=== PATIENT | female | born 1975 | race Two or more races ===

== ENCOUNTER 2019-05-25 05:45 | Inpatient (IN) | payer BC, MEDICAID ==
[2019-05-25] VITALS (12 sets, daily range): BP systolic 94–107; BP diastolic 53–60
[~2019-05-25] VITALS: Ht 160 cm; Wt 59.1 kg
[~2019-05-25 05:45] MED LIST: NAPR-996 PO
[2019-05-25] MEDS ORDERED: normal saline 1000ML IV soln IVB ONE (06:20)
[2019-05-25] MEDS ORDERED: morphine 4 MG/ML inj SYRINge IV PRN (06:20)
[2019-05-25] MEDS ORDERED: ondansetron/PF 4mg/2ml inj IV ONE (06:20)
[2019-05-25] MEDS ORDERED: mag hydrox/Alum hydrox/simeth 30ml oral suspension PO ONE (06:40)
[2019-05-25] MEDS ORDERED: famotidine 20mg tablet PO ONE (06:40)
[2019-05-25] MEDS ORDERED: LIDOcaine Viscous 15ml cup PO ONE (06:40)
[2019-05-25 06:52] LABS: BASOPHILS % (AUTO) 0.2 % (0-1); EOSINOPHILS % (AUTO) 0.3 % (0-6); HEMATOCRIT 36.3 % (35.0-45.0); HEMOGLOBIN 12.5 g/dl (12.0-16.0); LYMPHOCYTES # (AUTO) 0.9 X10'3 (1.1-4.8); LYMPHOCYTES % (AUTO) 11.1 % (21-51); MEAN CORPUSCULAR HEMOGLOBIN 30.2 PG (27.0-31.0); MEAN CORPUSCULAR HGB CONC 34.4 g/dL (33.0-36.5); MEAN CORPUSCULAR VOLUME 87.9 FL (78-98); MEAN PLATELET VOLUME 8.9 FL (7.4-10.4); MONOCYTES # (AUTO) 0.5 X10'3 (0-0.9); MONOCYTES % (AUTO) 6.4 % (2-12); NEUTROPHILS # (AUTO) 6.8 X10'3 (1.8-7.7); PLATELET COUNT 244 X10'3 (140-440); RED BLOOD COUNT 4.13 X10'6 (4.20-5.60); RED CELL DISTRIBUTION WIDTH 12.9 % (11.5-14.5); WHITE BLOOD COUNT 8.3 X10'3 (4.5-11.0)
[2019-05-25 07:04] LABS: ALANINE AMINOTRANSFERASE 344 U/L (12-78); ALBUMIN 4.1 G/DL (3.4-5.0); ALBUMIN/GLOBULIN RATIO 1.1 (1.1-1.5); ALKALINE PHOSPHATASE 155 IU/L (46-116); ANION GAP 11 (8-16); ASPARTATE AMINO TRANSFERASE 518 U/L (10-37); BILIRUBIN,TOTAL 1.2 MG/DL (0.1-1.0); BLOOD UREA NITROGEN 18 MG/DL (7-18); BUN/CREATININE RATIO 30.5 (6.6-38.0); CALCIUM 9.7 MG/DL (8.5-10.1); CHLORIDE 104 MMOL/L (99-107); CREATININE 0.59 MG/DL (0.40-0.90); GLUCOSE 130 MG/DL (70-104); POTASSIUM 3.8 MMOL/L (3.5-5.1); SODIUM 139 MMOL/L (135-145); TOTAL CARBON DIOXIDE 24.5 MMOL/L (24-32); eGFR > 90 ML/MIN
[2019-05-25 07:29] LABS: LIPASE > 30000 U/L (73-393)
[2019-05-25 09:12] LABS: URINE HCG NEGATIVE (NEG)
[2019-05-25 09:13] LABS: CLARITY,URINE SLIGHTLY CLOUDY (Clear); COLOR,URINE YELLOW (Yellow); GLUCOSE, URINE NEGATIVE (Neg); KETONES,URINE NEGATIVE (Neg); LEUKOCYTE ESTERASE ,URINE NEGATIVE (Neg); NITRITES, URINE NEGATIVE (Neg); OCCULT BLOOD,URINE NEGATIVE (Neg); PH,URINE 6.5 (4.8-8.0); PROTEIN,URINE NEGATIVE (Neg)
[2019-05-25 09:14] LABS: UA COLLECTION TYPE CLN CATCH MIDSTREAM
[2019-05-25 09:23] LABS: CAL OXALATE CRYSTALS 2+ /HPF (NEGATIVE); MUCUS STRANDS MODERATE /LPF (Neg); SQUAMOUS EPITHELIAL CELL,UR MODERATE /LPF (FEW)
[2019-05-25 09:25] LABS: BACTERIA,URINE 4+ /HPF (Neg); RBC,URINE 0-2 /HPF (0-2); WBC,URINE 0-4 /HPF (0-4)
[2019-05-25] MEDS ORDERED: normal saline 1000ml 1,000 ML IV ONE (09:35)
[2019-05-25] MEDS ORDERED: morphine 4 MG/ML inj SYRINge IV ONE (09:35)
--- NOTE | 2019-05-25 09:59 | NUR ---
NELY FROM GI LAB REPORTS PT TO GOING TO GI LAB SOMETIME TODAY NO ESTIMATED. PT TO REMAIN NPO.
[2019-05-25] MEDS ORDERED: potassium CL 10mEq/100ml bag 100 ML IV PRN ×2 (10:20)
[2019-05-25] MEDS ORDERED: morphine 2 MG/ML inj. syringe IV PRN (10:20)
[2019-05-25] MEDS ORDERED: potassium Cl 20 mEq SR tablet PO PRN ×2 (10:20)
[2019-05-25] MEDS ORDERED: magnesium 2GM in 50ml NS 50 ML IV PRN (10:20)
[2019-05-25] MEDS ORDERED: ondansetron/PF 4mg/2ml inj IV PRN (10:20)
[2019-05-25] MEDS ORDERED: magnesium 4gm in 100ml NS 100 ML IV PRN (10:20)
[2019-05-25] MEDS ORDERED: magnesium Cl slow-release 64mg tablet PO PRN (10:20)
[2019-05-25] MEDS ORDERED: MULT-933 PO (12:02)
[2019-05-25] MEDS ORDERED: PANT40TA4 PO (12:02)
[2019-05-25] MEDS: normal saline 1000ml 1,000 ML IV SCH ×2 (13:06→20:16)
[2019-05-25] MEDS ORDERED: fentaNYL/PF 50MCG/1 ML 2ML syringe ONE (13:26)
[2019-05-25] MEDS ORDERED: iohexol 300 MG/1 ML 50ml polymer ONE (13:27)
[2019-05-25] MEDS ORDERED: LIDOcaine Viscous 15ml cup ONE (13:27)
[2019-05-25] MEDS ORDERED: MIDAZolam 5mg/5ml vial ONE (13:27)
[2019-05-25] MEDS ORDERED: glucagon, human recombinant 1mg kit ONE (13:27)
[2019-05-25] MEDS ORDERED: diphenhydrAMINE 50 mg/ml inj ONE (13:27)
[2019-05-25] MEDS ORDERED: levoFLOXACIN-Levaquin 500mg/D5 100 ML IV ONE (13:27)
[2019-05-25] MEDS: morphine 2 MG/ML inj. syringe IV PRN (17:10)
[2019-05-25] MEDS: pantoprazole 40mg Tablet.DR PO SCH (17:32)
[2019-05-26] VITALS (16 sets, daily range): BP systolic 93–126; BP diastolic 51–74
[2019-05-26] MEDS: normal saline 1000ml 1,000 ML IV SCH ×3 (02:55→22:12)
[2019-05-26 05:18] LABS: BASOPHILS % (AUTO) 0.3 % (0-1); EOSINOPHILS % (AUTO) 0.7 % (0-6); HEMATOCRIT 30.2 % (35.0-45.0); HEMOGLOBIN 10.2 g/dl (12.0-16.0); LYMPHOCYTES # (AUTO) 1.8 X10'3 (1.1-4.8); LYMPHOCYTES % (AUTO) 31.5 % (21-51); MEAN CORPUSCULAR HEMOGLOBIN 29.9 PG (27.0-31.0); MEAN CORPUSCULAR HGB CONC 33.6 g/dL (33.0-36.5); MEAN CORPUSCULAR VOLUME 88.8 FL (78-98); MONOCYTES # (AUTO) 0.4 X10'3 (0-0.9); MONOCYTES % (AUTO) 6.2 % (2-12); NEUTROPHILS # (AUTO) 3.5 X10'3 (1.8-7.7); NEUTROPHILS % (AUTO) 61.3 % (42-75); PLATELET COUNT 187 X10'3 (140-440); RED CELL DISTRIBUTION WIDTH 13.2 % (11.5-14.5); WHITE BLOOD COUNT 5.8 X10'3 (4.5-11.0)
[2019-05-26 05:42] LABS: ALANINE AMINOTRANSFERASE 175 U/L (12-78); ALBUMIN 2.9 G/DL (3.4-5.0); ALKALINE PHOSPHATASE 118 IU/L (46-116); ANION GAP 9 (8-16); ASPARTATE AMINO TRANSFERASE 120 U/L (10-37); BILIRUBIN,TOTAL 0.5 MG/DL (0.1-1.0); BLOOD UREA NITROGEN 6 MG/DL (7-18); BUN/CREATININE RATIO 13.3 (6.6-38.0); CALCIUM 7.9 MG/DL (8.5-10.1); CHLORIDE 109 MMOL/L (99-107); CREATININE 0.45 MG/DL (0.40-0.90); GLUCOSE 77 MG/DL (70-104); MAGNESIUM 1.9 MG/DL (1.5-2.4); POTASSIUM 3.6 MMOL/L (3.5-5.1); SODIUM 141 MMOL/L (135-145); TOTAL CARBON DIOXIDE 23.4 MMOL/L (24-32); TOTAL PROTEIN 5.9 G/DL (6.4-8.2); eGFR > 90 ML/MIN
[2019-05-26 06:12] LABS: LIPASE 2883 U/L (73-393)
--- NOTE | 2019-05-26 06:42 | NUR ---
Patient in room [facility]. I have received report from AUDREY Palacios and had the opportunity to ask questions and assume patient care.
--- NOTE | 2019-05-26 06:57 | NUR ---
Patient in room [facility] 348. I have received report from Naida VENTURA, and had the opportunity to ask questions and assume patient care.
[2019-05-26] MEDS: K and/or MAG REPLACEMENT MC SCH (08:00)
[2019-05-26] MEDS: multivitamins, therapeutics tablet PO SCH (08:44)
[2019-05-26] MEDS: pantoprazole 40mg Tablet.DR PO SCH (08:44)
--- NOTE | 2019-05-26 11:26 | NUR ---
Patient removed one yellow ring, two earrings with clear clear stones, one red rope bracelet and gave to their daughter to take home.
--- NOTE | 2019-05-26 15:09 | NUR ---
Student Medication Administration: For this medication-pass time frame, all medication were reviewed, dispensed, administered and documented per hospital policy by SN [facility].
--- NOTE | 2019-05-26 15:47 | NUR ---
Pt transported to OR at 1545. Blood glucose finger stick 63. Dr Zarate notified.
[2019-05-26] MEDS ORDERED: ringers solution, lacted 1,000 ML IV SCH (16:14)
[2019-05-26] MEDS ORDERED: morphine 4 MG/ML inj SYRINge IV PRN ×2 (16:15)
[2019-05-26] MEDS ORDERED: labetalol 20mg/4ml (5mg/ml) syringe IV PRN (16:15)
[2019-05-26] MEDS ORDERED: hydrALAZINE 20mg/ml inj. IV PRN (16:15)
[2019-05-26] MEDS ORDERED: ondansetron/PF 4mg/2ml inj IV PRN (16:15)
[2019-05-26] MEDS ORDERED: fentaNYL/PF 50MCG/1 ML 2ML syringe IV PRN (16:15)
[2019-05-26] MEDS ORDERED: dexamethasone sod phosphate 10mg/ml inj ONE (16:19)
[2019-05-26] MEDS ORDERED: glycopyrrolate 0.2mg/ml inj ONE (16:19)
[2019-05-26] MEDS ORDERED: sevoflurane 250ml liquid IH ONE (16:19)
[2019-05-26] MEDS ORDERED: neostigmine methylsulfate 1 MG/ML 10ml vial ONE (16:19)
[2019-05-26] MEDS ORDERED: BUPIVAcaine/PF 2.5 mg/ml (0.25%) 30ml vial ONE (16:20)
[2019-05-26] MEDS ORDERED: rocuronium 10mg/ml inj IV ONE (16:27)
[2019-05-26] MEDS ORDERED: ceFAZolin 1000mg inj ONE ×2 (16:29)
[2019-05-26] MEDS ORDERED: ondansetron/PF 4mg/2ml inj ONE (16:29)
[2019-05-26] MEDS ORDERED: LIDOcaine 2% (20mg/ml) 5ml vial ONE (16:33)
[2019-05-26] MEDS ORDERED: fentaNYL/PF 50MCG/1 ML 2ML syringe ONE ×2 (16:33→17:21)
[2019-05-26] MEDS ORDERED: propofol inj 20 ML IV ONE (16:33)
--- NOTE | 2019-05-26 17:40 | NUR ---
Received from OR via BED , accompanied by Anesthesiologist DR JEREZ and report given by Anesthesiolgist. PATIENT WAKING UP, DENIES PAIN, V/S WNL, NEUROVASCULAR CHECKS INTACT, 20G PIV LUE, SCD ON, 2 BANDAIDS TO LAP SIGHTS OF ABDOMEN CDI.
--- NOTE | 2019-05-26 17:51 | NUR ---
Pt in recovery room. I have received report from AUDREY Locke and had the opportunity to ask questions and assume patient care.
[2019-05-26] MEDS: fentaNYL/PF 50MCG/1 ML 2ML syringe IV PRN ×2 (17:53→17:55)
--- NOTE | 2019-05-26 18:30 | NUR ---
PATIENT A&OX4, STATES PAIN IMPROVING AND GETTING BETTER, V/S WNL, NEUROVASCULAR CHECKS INTACT, 20G PIV LUE, SCD ON, 2 BANDAIDS TO LAP SIGHTS OF ABDOMEN CDI. PATIENT TAKEN TO 348A WITH ALL BELONGINGS AND HOOKED UP TO MONITORS IN ROOM AND REPORT GIVEN TO SLUDGE MILL OPERATOR WHO HAS TAKEN OVER PATIENT CARE
--- NOTE | 2019-05-26 18:32 | NUR ---
pt returned from OR, settled in room with call light in reach
--- NOTE | 2019-05-26 18:42 | NUR ---
Problems reprioritized. Patient report given, questions answered & plan of care reviewed with AUDREY Goss.
--- NOTE | 2019-05-26 18:43 | NUR ---
Patient in room [facility] 348. I have received report from Naida VENTURA and had the opportunity to ask questions and assume patient care.
[2019-05-26] MEDS: morphine 2 MG/ML inj. syringe IV PRN (22:13)
[2019-05-27] VITALS: BP 101/63
[2019-05-27] MEDS: morphine 2 MG/ML inj. syringe IV PRN ×2 (02:51→07:58)
[2019-05-27 04:30] VITALS: BP 109/53
[2019-05-27 05:27] LABS: BASOPHILS % (AUTO) 0.1 % (0-1); EOSINOPHILS % (AUTO) 0 % (0-6); HEMATOCRIT 30.5 % (35.0-45.0); HEMOGLOBIN 10.5 g/dl (12.0-16.0); LYMPHOCYTES # (AUTO) 0.9 X10'3 (1.1-4.8); LYMPHOCYTES % (AUTO) 9.6 % (21-51); MEAN CORPUSCULAR HEMOGLOBIN 30.5 PG (27.0-31.0); MEAN CORPUSCULAR HGB CONC 34.4 g/dL (33.0-36.5); MEAN CORPUSCULAR VOLUME 88.6 FL (78-98); MEAN PLATELET VOLUME 9.1 FL (7.4-10.4); MONOCYTES # (AUTO) 0.5 X10'3 (0-0.9); NEUTROPHILS # (AUTO) 7.8 X10'3 (1.8-7.7); NEUTROPHILS % (AUTO) 85.3 % (42-75); PLATELET COUNT 198 X10'3 (140-440); RED BLOOD COUNT 3.45 X10'6 (4.20-5.60); WHITE BLOOD COUNT 9.1 X10'3 (4.5-11.0)
[2019-05-27 05:43] LABS: MAGNESIUM 1.6 MG/DL (1.5-2.4)
--- NOTE | 2019-05-27 06:32 | NUR ---
Problems reprioritized. Patient report given, questions answered & plan of care reviewed with Naida VENTURA .
--- NOTE | 2019-05-27 06:40 | NUR ---
Patient in room [facility] 348. I have received report from AUDREY Goss and had the opportunity to ask questions and assume patient care.
[2019-05-27] MEDS: multivitamins, therapeutics tablet PO SCH (07:57)
[2019-05-27] MEDS: pantoprazole 40mg Tablet.DR PO SCH (07:57)
[2019-05-27] MEDS: normal saline 1000ml 1,000 ML IV SCH (07:57)
[2019-05-27 08:00] VITALS: BP 111/65
[2019-05-27] MEDS: K and/or MAG REPLACEMENT MC SCH (08:00)
[2019-05-27 11:00] VITALS: BP 102/61
[2019-05-27 11:34] LABS: ALANINE AMINOTRANSFERASE 140 U/L (12-78); ALBUMIN 3.1 G/DL (3.4-5.0); ALBUMIN/GLOBULIN RATIO 0.9 (1.1-1.5); ALKALINE PHOSPHATASE 109 IU/L (46-116); ANION GAP 8 (8-16); ASPARTATE AMINO TRANSFERASE 84 U/L (10-37); BILIRUBIN,TOTAL 0.4 MG/DL (0.1-1.0); BLOOD UREA NITROGEN 5 MG/DL (7-18); BUN/CREATININE RATIO 8.9 (6.6-38.0); CALCIUM 8.2 MG/DL (8.5-10.1); CHLORIDE 106 MMOL/L (99-107); CREATININE 0.56 MG/DL (0.40-0.90); GLUCOSE 114 MG/DL (70-104); POTASSIUM 3.9 MMOL/L (3.5-5.1); SODIUM 139 MMOL/L (135-145); TOTAL CARBON DIOXIDE 24.6 MMOL/L (24-32); TOTAL PROTEIN 6.5 G/DL (6.4-8.2); eGFR > 90 ML/MIN
[2019-05-27] MEDS ORDERED: HYDROcodone/acetaminophen 10/325mg tab PO PRN (12:00)
--- NOTE | 2019-05-27 13:42 | NUR ---
Pt discharged to home with all belongings, in private vehicle, accompanied by daughter. Discharge instructions and medications reviewed. No new prescriptions ordered. IV DC'd, cannula intact. Pt instructed to follow up with Dr aZrate in 1 week, office number provided. Pt escorted to front lobby via wheelchair by PCT.
== END 2019-05-27 13:33 | disposition home or self-care (01) | DRG 417 ==
LOC: ER 05:45 → EDBEDREQSVC 11:57 → SUR 3N 14:20
PROVIDERS: ADMIT Internal Medicine; ATTEND Internal Medicine
PROC: BF101ZZ Fluoroscopy of Bile Ducts using Low Osmolar Contrast (ICD-10-PCS; 2019-05-25)
PROC: 0FC98ZZ Extirpation of Matter from Common Bile Duct, Via Natural or Artificial Opening Endoscopic (ICD-10-PCS; 2019-05-25)
PROC: 0F798DZ Dilation of Common Bile Duct with Intraluminal Device, Via Natural or Artificial Opening Endoscopic (ICD-10-PCS; 2019-05-25)
PROC: 0FT44ZZ Resection of Gallbladder, Percutaneous Endoscopic Approach (ICD-10-PCS; principal; 2019-05-26 16:19)
DX: K80.71 Calculus of gallbladder and bile duct without cholecystitis with obstruction (principal); K85.10 Biliary acute pancreatitis without necrosis or infection; R74.8 Abnormal levels of other serum enzymes; R79.89 Other specified abnormal findings of blood chemistry; R94.5 Abnormal results of liver function studies; K21.9 Gastro-esophageal reflux disease without esophagitis
CPT/HCPCS: 43262; 43264; 43274; 96374; 96375; 96376; 99285; Z7506; Z7508; 36415; 74176; 76700; 80053; 81001; 81025; 82948; 83605; 83690; 83735; 85025; 87077; 87081; 87088; 87186; 99152; 99153; A4215; A4618; A4620; A7000; C1769; G0378; J0690; J1100; J1200; J1610; J1956; J2001; J2250; J2270; J2405; J2704; J2710; J3010; J3490; J7030; J7040; J7120; Q9967

== ENCOUNTER 2019-06-27 09:36 | Day surgery (SDC) | payer BC ==
[2019-06-27] VITALS (7 sets, daily range): BP systolic 92–108; BP diastolic 50–94
[~2019-06-27] VITALS: Ht 165.1 cm; Wt 3.0 kg
[~2019-06-27 09:36] MED LIST changes: +MULT-933 PO; -NAPR-996 PO; +PANT40TA4 PO
[2019-06-27] MEDS ORDERED: NO HOME MEDS (10:00)
[2019-06-27] MEDS ORDERED: fentaNYL/PF 50MCG/1 ML 2ML syringe ONE ×3 (10:03→11:46)
[2019-06-27] MEDS ORDERED: MIDAZolam 5mg/5ml vial ONE ×2 (10:04→11:47)
[2019-06-27] MEDS ORDERED: LIDOcaine Viscous 15ml cup ONE ×2 (10:04→11:47)
[2019-06-27] MEDS ORDERED: glucagon, human recombinant 1mg kit ONE (10:04)
[2019-06-27] MEDS ORDERED: iohexol 300 MG/1 ML 50ml polymer ONE (10:04)
== END 2019-06-27 12:30 | disposition home or self-care (01) ==
LOC: GI LAB 09:36
PROVIDERS: ATTEND Internal Medicine Gastroenterology
DX: Z46.59 Encounter for fitting and adjustment of other gastrointestinal appliance and device (principal); K83.8 Other specified diseases of biliary tract
CPT/HCPCS: 43264; 43275; 99152; 99153; C1769; C1773; J1610; J2250; J3010; J7040; Q9967; A4620